=== PATIENT | female | born 2000 | race Caucasian/White ===

== ENCOUNTER → 2020-08-04 | Outpatient (CLI) | payer OTHER ==
[~2020-08-04] MED LIST: ACCUNEB SO1.25 MG/1 INH; FLOVENT HFA13 GM IH; ZANTAC 150MG T150 MG PO
== END ==
LOC: M.LAB 09:48
PROVIDERS: ATTEND Orthopaedic Surgery
DX: Z01.812 Encounter for preprocedural laboratory examination (principal); Z20.828 Contact with and (suspected) exposure to other viral communicable diseases